=== PATIENT | male | born 1940 | race Caucasian/White ===

== ENCOUNTER → 2020-03-01 11:20 | Outpatient (BNVA) | payer OTHER, SELFPAY | PROVIDERS: PCP Internal Medicine; Visit Provider Urology | DX: R97.20 Elevated prostate specific antigen [PSA] (principal); R39.89 Other symptoms and signs involving the genitourinary system | CPT/HCPCS: 81001; 84153 ==

== ENCOUNTER → 2022-09-26 08:12 | Outpatient (BNVA) | payer OTHER, SELFPAY | PROVIDERS: PCP Internal Medicine; Visit Provider Physician Assistant | DX: M85.88 Other specified disorders of bone density and structure, other site (principal); M47.22 Other spondylosis with radiculopathy, cervical region; M50.121 Cervical disc disorder at C4-C5 level with radiculopathy; M75.42 Impingement syndrome of left shoulder | CPT/HCPCS: 72050; 99204 ==

== ENCOUNTER 2022-10-25 14:22 | Outpatient (CLI) | payer OTHER, SELFPAY ==
--- NOTE | 2022-10-25 14:30 | MR_ITS ---
WS: [id number] MRI LEFT SHOULDER NONCONTRAST TECHNIQUE: Sagittal T2, coronal T1, T2 and proton density imaging. Axial gradient PDE imaging. CLINICAL INFORMATION: pain COMPARISON: None. 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 Slight subacromial spurring. Marked narro wing of the subacromial space. Subchondral cystic degenerative change involving the greater tuberosit y. Severe narrowing of the subacromial space with impingement on the distal supraspinatus. High-grade partial tear of the distal supraspinatus with fluid-filled cleft seen on the sagittal imaging. Assoc iated distal undersurface tear. No tendon retraction. Residual intact fibers visualized distally. Infraspinatus appears intact. Normal teres minor. Distal subscapularis tendon appears intact. Biceps tendon appears intact within the bicipital groove. Degenerative fraying of the glenoid labrum. Biceps labral anchor appears intact. Intra-articular biceps tendon appears intact. MR/MR shoulder LT wo con* [id number] IMPRESSION: 1. High-grade partial tear involving the distal supraspinatus with fluid signa l. Additional small undersurface tear distally. Chronic thinning of the distal supraspinatus. 2. Normal infraspinatus. Normal teres minor and subscapularis. 3. Normal biceps tendon in the bicipital groove. 4. 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 Impingement on the distal supraspinatus. Edema at the AC joint.
== END 2022-10-25 14:23 | disposition home or self-care (01) ==
LOC: RAD 14:23
PROVIDERS: PCP Family Medicine; Visit Provider Physician Assistant
DX: M25.512 Pain in left shoulder (principal)
CPT/HCPCS: 73221

== ENCOUNTER 2022-10-25 14:23 | Outpatient (CLI) | payer OTHER, SELFPAY ==
--- NOTE | 2022-10-25 15:15 | MR_ITS ---
WS: [id number] MRI CERVICAL SPINE NONCONTRAST TECHNIQUE: Sagittal T1, T2 and STIR imaging. Axial T2, gradient, and fiesta imaging. CLINICAL INFORMATION: Cervicalgia COMPARISON: FINDINGS: Straightening of the normal cervical lordosis. Mild cervical curve. Cord signal is normal. No high-gr deonte central canal stenosis. Small disc protrusions C5-C6 and C6-C7. C2-C3: No significant disc bulging. Mild facet arthropathy. Spinal canal and foramen are patent. C3-C4: Moderate facet arthropathy worse in the RIGHT. Mild to moderate RIGHT and mild LEFT bony nicole inal narrowing. Spinal canal is patent. C4-C5: Moderate facet arthropathy. Mild to moderate bilateral bony foraminal narrowing. Spinal canal is patent. C5-C6: Disc osteophyte complex with endplate ridging. Slight indentation on the cervical cord. Modera te bilateral bony foraminal narrowing. C6-C7: Shallow central disc protrusion with slight contact of the cervical cord. Moderate LEFT greate r than RIGHT bony foraminal narrowing. Moderate facet arthropathy. C7-T1: Moderate LEFT and mild RIGHT bony foraminal narrowing. Spinal canal is patent. Normal visualized vertebral artery flow voids. Visualized brain stem structures: Normal. Prevertebral soft tissues: Normal. MR/MR cervical spin wo con* [id number] IMPRESSION: 1. Mild cervical curve. Straightening of the normal cervical lordosis. Cord si gnal is normal. 2. Shallow central disc protrusions C5-C6 and C6-C7 with slight contact of the cervical cord. Spinal canal remains patent. 3. Multilevel moderate bony foraminal narrowing worse at RIGHT C3-C4, LEFT C4- C5, LEFT C5-C6, and RIGHT C6-C7. 4. Moderate facet arthropathy C3-C4, LEFT C4-C5, and C5-C6.
== END 2022-10-25 14:24 | disposition home or self-care (01) ==
LOC: RAD 14:23
PROVIDERS: PCP Family Medicine; Visit Provider Physician Assistant
DX: M54.2 Cervicalgia (principal)
CPT/HCPCS: 72141

== ENCOUNTER → 2022-11-16 13:28 | Outpatient (BNVA) | payer OTHER, SELFPAY | PROVIDERS: PCP Family Medicine; Referring Provider Family Medicine; Visit Provider Internal Medicine | DX: E04.1 Nontoxic single thyroid nodule (principal); D75.1 Secondary polycythemia | CPT/HCPCS: 99204 ==

== ENCOUNTER → 2022-11-23 10:17 | Outpatient (BNVA) | payer OTHER, SELFPAY | PROVIDERS: PCP Family Medicine; Visit Provider Physician Assistant | DX: M47.22 Other spondylosis with radiculopathy, cervical region (principal); M50.30 Other cervical disc degeneration, unspecified cervical region; M75.102 Unspecified rotator cuff tear or rupture of left shoulder, not specified as traumatic | CPT/HCPCS: 99213 ==